=== PATIENT | male | born 1965 | race Caucasian/White ===

== ENCOUNTER → 2016-08-20 | Day surgery (SDC) | payer OTHER ==
[~2016-08-20] MED LIST: ACETAMINOPHEN 1000 MG/100 ML VIAL IV ONE; BUPIVACAINE/EPINEPHRINE 0.25% 50 ML VIAL ONE; KETOROLAC TROMETHAMINE 30 MG/ML (IVP) VIAL IV PUSH ONE; LACTATED RINGER'S 1000 ML INJ 1,000 ML ONE; LIDOCAINE 1%/EPINEPHrine 1:100,000 SOLN 20 ML VIAL ONE; METO25TA3 PO; MIDAZOLAM HCL 2 MG/2 ML VIAL ONE; PROPOFOL 200 MG/20 ML AMP IV ONE; ceFAZolin 2 GM PREMIX 50 ML ONE; oxyCODONE/ACETAMINOPHEN 5 MG/325 MG TAB ONE
--- NOTE | 2016-08-20 17:29 | TN ---
cc: CARRIE CORONA MD DATE OF SURGERY: 08/20/2016 PREOPERATIVE DIAGNOSIS Right inguinal lymphadenopathy. POSTOPERATIVE DIAGNOSIS Right inguinal venous aneurysm. PROCEDURE Excision of right inguinal venous aneurysm and right inguinal lymph nodes. SURGEON Carrie Corona MD [employer] Staff. SPECIMENS 1. Right inguinal lymph nodes, normal appearing. 2. Excision of right inguinal minor vein venous aneurysm. ESTIMATED BLOOD LOSS 10 cc. ANESTHESIA TIVA. INDICATIONS The patient is a 51-year-old male who had noticed a mass in the right groin. Initially it was felt to be a hernia but a CT was performed and it appeared to be a right inguinal lymph node. This had been present for quite some time therefore we recommended excision. OPERATIVE FINDINGS The patient had only normal lymph nodes in the right inguinal and superficial femoral areas. I was unable to find any enlarged or abnormal appearing lymph nodes. I did remove two lymph nodes for a specimen. However in a superficial vein, possibly one of the saphenous veins, there was approximately a 2.5 cm aneurysm. On either side there was normal-appearing vein and the aneurysm was excised. PROCEDURE IN DETAIL The patient was taken to the operating room and placed in supine position. General endotracheal anesthesia was induced. The right groin was prepped and draped in the usual sterile fashion. Then a surgical timeout was performed to verify correct patient, procedure and site. Appropriate perioperative antibiotics were administered. An incision was made low in the right inguinal area over where we had marked the spot preoperatively. I was unable to really palpate the inguinal mass. Electrocautery was used to dissect through the subcutaneous tissue. On the right inguinal and the superficial femoral areas, careful dissection was performed to attempt to find abnormal lymph node. There was no abnormal lymph node identified after quite a while of searching. Two normal appearing nodes were removed and sent for permanent pathology. The CT abdomen and pelvis was reviewed intraoperatively and it appeared the mass was just over the vessels. On further exam in the right inguinal incision, there was an obvious enlarged vein which initially had not been closely inspected because I was looking for a lymph node. The vein on further inspection was about a 2.5 cm venous aneurysm off of a minor vein. This was then excised and each end tied with a 3-0 silk suture. It was removed and this was felt to be the cause of his mass. The right inguinal area was then irrigated. Hemostasis was achieved. It was closed in two layers with deep 3-0 Vicryl interrupted, followed by running subcuticular 4-0 Monocryl. The patient tolerated the procedure well and was awakened and taken to PACU in stable condition. MD CHELSI Fermin/BJSamantha /2:09 PM /4:57 PM
== END | disposition home or self-care (01) ==
LOC: ESDC 09:41
PROVIDERS: ATTEND Surgery
DX: R59.0 Localized enlarged lymph nodes (principal); I72.4 Aneurysm of artery of lower extremity
CPT/HCPCS: 00400; 37799; 38500; 88305; J0131; J0690; J1885; J2250; J3010; J7120; 88304

== ENCOUNTER 2016-10-11 13:25 | Emergency (ER) | payer OTHER ==
[~2016-10-11] VITALS: Ht 175.3 cm; Wt 77.9 kg
[2016-10-11 13:38] VITALS: BP 139/90; PULSE 67; RESP 16; TEMP 97.7; O2SAT 97
[2016-10-11 13:45] VITALS: O2SAT 97
[2016-10-11] MEDS ORDERED: METO25TA3 PO (13:45)
[2016-10-11] MEDS ORDERED: SODIUM CHLORIDE 0.9% FLUSH 5 ML FLUSH IVF PRN (13:45)
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
[2016-10-11 13:56] LABS: AUTOMATED NEUTROPHIL # 5.2 TH/MM3 (1.8-7.7); BASOPHIL % 0.6 % (0.0-2.0); EOSINOPHIL # 0.1 TH/MM3 (0-0.4); EOSINOPHIL % 1.1 % (0.0-4.0); HEMATOCRIT 45.4 % (39.0-51.0); HEMO FLAGS DIFF FINAL; LYMPH % 18.3 % (9.0-44.0); LYMPHOCYTE # 1.3 TH/MM3 (1.0-4.8); MEAN CELL VOLUME 88.8 FL (80.0-100.0); MEAN CORPUSCULAR HEMOGLOBIN 29.2 PG (27.0-34.0); MEAN CORPUSCULAR HGB CONC 32.9 % (32.0-36.0); MONO % 7.5 % (0.0-8.0); NEUT % 72.5 % (16.0-70.0); PLATELET COUNT 180 TH/MM3 (150-450); RED BLOOD COUNT 5.12 MIL/MM3 (4.50-5.90); RED CELL DISTRIBUTION WIDTH 12.1 % (11.6-17.2); WHITE BLOOD COUNT 7.1 TH/MM3 (4.0-11.0)
[2016-10-11 14:07] LABS: CHLORIDE 107 MEQ/L (98-107); SODIUM (NA) 144 MEQ/L (136-145)
[2016-10-11 14:10] LABS: ANION GAP 12 MEQ/L (5-15); APTT (PATIENT) 27.7 SEC (24.3-30.1); BICARBONATE 25.1 MEQ/L (21.0-32.0); BLOOD UREA NITROGEN 12 MG/DL (7-18); PROTHROMBIN TIME - PATIENT 11.1 SEC (9.8-11.6)
[2016-10-11 14:14] LABS: GLOMERULAR FILTRATION RATE 93 ML/MIN (>89)
[2016-10-11 14:21] LABS: CREATINE KINASE 93 U/L (39-308)
--- NOTE | 2016-10-11 14:54 | RADHPO ---
EXAM DATE/TIME: 10/11/2016 13:49 [facility] COMPARISON: CHEST SINGLE AP, July 20, 2016, 16:22. INDICATIONS : Short of breath MEDICAL HISTORY : None. SURGICAL HISTORY : None. ENCOUNTER: Initial ACUITY: 3 days PAIN SCORE: 4/10 LOCATION: Bilateral chest FINDINGS: A single view of the chest demonstrates the lungs to be symmetrically aerated without evidence of mas s, infiltrate or effusion. The cardiomediastinal contours are unremarkable. Osseous structures are intact. CONCLUSION: No acute cardiac pulmonary process. Pilo Luis MD on October 11, 2016 at 14:52 Board Certified Radiologist. This report was verified electronically.
[2016-10-11 15:07] VITALS: BP 143/90
--- NOTE | 2016-10-12 10:23 | EKG ---
Date Performed: 10/11/2016 Time Performed: 13:31:20 PTAGE: 51 years EKG: Sinus rhythm Normal ECG PREVIOUS TRACING : 07/20/2016 15.46 DOCTOR: Kb Brennan Interpretating Date/Time 10/12/2016 10:19:52
== END 2016-10-11 15:09 | disposition home or self-care (01) ==
LOC: PHED 13:25
DX: R07.9 Chest pain, unspecified (principal); I48.0 Paroxysmal atrial fibrillation
CPT/HCPCS: 71010; 80048; 82550; 84484; 85025; 85610; 85730; 93005

== ENCOUNTER 2017-07-15 06:24 | Day surgery (SDC) | payer OTHER ==
[~2017-07-15] VITALS: Ht 175.3 cm; Wt 77.3 kg
[~2017-07-15 06:24] MED LIST changes: -ACETAMINOPHEN 1000 MG/100 ML VIAL IV ONE; -BUPIVACAINE/EPINEPHRINE 0.25% 50 ML VIAL ONE; -KETOROLAC TROMETHAMINE 30 MG/ML (IVP) VIAL IV PUSH ONE; -LACTATED RINGER'S 1000 ML INJ 1,000 ML ONE; -LIDOCAINE 1%/EPINEPHrine 1:100,000 SOLN 20 ML VIAL ONE; -MIDAZOLAM HCL 2 MG/2 ML VIAL ONE; -PROPOFOL 200 MG/20 ML AMP IV ONE; -ceFAZolin 2 GM PREMIX 50 ML ONE; -oxyCODONE/ACETAMINOPHEN 5 MG/325 MG TAB ONE
[2017-07-15] MEDS ORDERED: IOHEXOL 350 MG/ML 50 ML BTL (for Cath Lab) OTHER ONE (06:25)
[2017-07-15 06:45] VITALS: BP 141/105; PULSE 64; RESP 18; TEMP 97.9; O2SAT 97
[2017-07-15] MEDS ORDERED: NS 1000P @30 MLS/HR (KVO) IV SCH (06:45)
[2017-07-15] MEDS ORDERED: LISI10TA3 PO (07:11)
[2017-07-15] MEDS ORDERED: HEPARIN-NS/PF INJ 1,000 ML ONE (08:17)
[2017-07-15] MEDS ORDERED: MIDAZOLAM HCL 2 MG/2 ML VIAL ONE (08:21)
--- NOTE | 2017-07-15 08:58 | CATHPROC ---
[facility] HIS Report Study Information Study Number Admission Scheduled Start Study Start [id number] Jul 15 2017 6:24AM 07/15/2017 Jul 15 2017 8:10AM [place] Service Cardiac Catheterization Admit Source Facility Department Other [facility] Physician and Clinical Staff Initial MD Caamrena, Cheikh Paper Steameralfreda Schafer RN, Giorgio RecordDanielle Moore,RT(R) (BS) Scrub Adilene Cavanaugh,CHELSEY TECH2 Procedures Performed Procedure Location (Site) Vessel Name Coronary Angiograms RCA Right Coronary L Heart Cath Equipment Time Sql Report Developer Description Size Mfg Part Number Used/Scraped TRANSDUCER, TRUWAVE [id number] 08:21 FALL FLOR * Used W/STOCKCOCK *[id number] *[id number] *[id number] *[id number] 08:46 DAIG/[employer]. PHANI MEDICAL ANGIOSEAL, FR6 VIP FR 6 Used *[id number] 08:21 MEDLINE INDUSTRIES PACK, CCL CUSTOM * Used *[id number] 08:21 Caktus PACER PEN, SKIN DUAL W/ RULER * Used *[id number] 08:21 Ecelles Carson MEDICAL SHEATH, FR6.5 PRELUDE 11CM FR 6.5 038ACT Used *[id number] 08:21 Ecelles Carson MEDICAL WIRE, 3MMJ .035 180CM 180CM Used *[id number] 08:21 NAMIC MANIFOLD, 4 PORT * Used *[id number] 08:21 NYCOMED OMNIPAQUE, 350 MG, 100ML 100ML [id number] Used [id number] 08:21 HAMMER MEDICAL BLANKET,WARM AIR CCL * Used *[id number] Equipment Model, Serial, Lot Number and Expiration Data Description Model Number Serial Number Lot Number Expiration Da te ANGIOSEAL, FR6 VIP [id number] 03-24-2018 History: Current Medications Medication Dosage/Unit Route Frequency Last Date/Time Taken LISINOPRIL Beta Kelsey History: Allergies Allergy Reaction No Known Allergies escitalopram History: Risk Factors Family History of Hypertension Dyslipidemia Previous MT Previous Heart Failure Premature CAD Yes No No No No Prior Valve Prior PCI Prior CABG Surgery No No No Cerebrovascular Peripheral Artery Chronic Lung On Dialysis Diabetes Disease Disease Disease No No No No No History: Stress Tests Stress or Imaging Studies Performed Yes Standard Exercise Stress Stress Test Result Stress Test Ischemia Risk/Extent Test Yes Positive Low Stress Echo No Stress Test SPECT No Stress Test CMR No Cardiac CTA Coronary Calcium Score No No History: Other Current Smoker Method Packs a Day Years Used Pack Years Yes Cigarettes 1 20 20 Labs Hgb (g/dl) Hct (%) RBC (MIL/MM3) WBC (l/cumm) Platelets (thousands) 11.60-17.00 35.00-51.00 4.00-5.90 4.00-11.00 150.00-450.00 16.8 51.9 5.6 7 196 Glucose (mg/dl) BUN (mg/dl) 74.00-106.00 7.00-18.00 89 20 Na (meq/l) K (meq/l) Cl (meq/l) CO2 (mmol/L) Ca (mg/dl) 136.00-145.00 3.50-5.10 98.00-107.00 21.00-32.00 8.50-10.10 145 4.2 106 26 10.1 PTT (sec) INR (PTT:PT) 24.30-30.10 0.90-1.10 10.5 1 CPK-MB (ng/ML) 0.50-3.60 Not Drawn Medication Medication Total Dose (Bolus/Oral) Medication Total Dosage/Unit 1% XYLOCAINE 20 mL VERSED 2 mg Medications (Bolus/Oral) Medication Time Given Dosage/Unit Administered By Reason VERSED 07/15/2017 8:36:11 AM 2 mg Giorgio Schafer RN 2 mg VERSED given in lab by Giorgio Schafer RN in Left Antecubital via Peripheral IV. 1% XYLOCAINE 07/15/2017 8:36:36 AM 20 mL Cheikh Camarena 20 mL 1% XYLOCAINE given in lab by Cheikh Camarena in Right Groin via Subcutaneous. Medication (Drip) Medication Time Given Dosage/Unit Concentration/Unit Diluent (ml) Solution IV Solutions 07/15/2017 8:11:32 AM 0 mL (IV) 500 NaCl .9 IV Solutions given in lab by Giorgio Schafer RN in Left Antecubital via Peripheral IV. Pump/Drip Flow = 30 ml/hr using NaCl .9. Initial Case Assessment Cardiovascular HR Rhythm NIBP Chest Pain 57 reg 141/101 0 Edema Present Skin color Skin None Normal Warm Circulatory - Right Pulses Dorsalis Pedis Femoral 3 3 Scale (0,1,2,3,4,d) Circulatory - Left Pulses Dorsalis Pedis Femoral 2 3 Scale (0,1,2,3,4,d) Circulatory - Lower Extremities Color Lower Right Color Lower Left Normal Normal Neurological State Oriented to time-place- Alert Moves all extremities person Respiration - General Respiration Rate SpO2 (%) (B/min) 20 98 Chronological Log Time Study Chronological Log 8:11:15 Patient arrived via Bed. 8:11:16 Patient Name, D.O.B, / Armband Verified By R.N. 8:11:18 Consent signed by the physician and the patient and verified by the [facility] staff. 8:11:18 Pre-op and post- op instructions given; patient acknowledges understanding of instructions. 8:11:19 Verbal Stimulation=2 Physical Stimulation=2 Airway=2 Respiration=2 TOTAL=8. (0=absent, 1=li mited, 2=present) 8:11:27 Patient has been NPO for More than 6Hrs. 8:11:28 Skin Breakdown none per pt 8:11:30 Patient Warmer Placed on the Table. 8:11:31 Jacquelyn Prominences Protected 8:11:31 A # 20 IV was noted in the Antecubital (left). Grade = 0 IV Solutions given in lab by Giorgio Schafer RN in Left Antecubital via Peripheral IV. Pump/Drip F low = 30 ml/hr using NaCl 8:11:32 .9. 8:11:33 History and physical on the chart or being dictated. Assessment: Initial Case, HR=57 BPM, Rhythm=reg, WJNY=338/101 mmhg, Chest Pain=0, Edema=None, Color=Normal, Skin = Warm Right Pulses: Chicho Ped=3, Femoral=3 Left Pulses: Chicho Ped=2, Femoral=3 8:11:34 Lower Right Extremities: Color=Normal Lower Left Extremities: Color=Normal Neurological: State=Alert, Ox3, PAVON Respiration: Resp=20 B/min, SpO2=98 % Vitals capture started with the following parameters, Patient=Adult, Interval=5 min, Initial Pre seqkt=271 mmHg, 8:16:14 Deflation Rate=5 mmHg, Cuff placed on Left Arm 8:16:46 TZCT=544/101 mmhg, SpO2=98.0 %, Resp=18 B/min, Pain=0, Zaida=10, Menezes=2 8:19:43 Bilateral groins prepped with 2% chlorhexidine, and draped after a 3 minute waiting time. 8:21:49 HR=57 bpm, KNJE=813/100 mmhg, SpO2=98.0 %, Resp=15 B/min, Pain=0, Zaida=10, Menezes=2 8:22:19 Reference ECG taken 8:23:37 Pressure channel 1 zeroed. 8:24:06 MD paged 8:27:31 HR=62 bpm, VSRX=922/101 mmhg, SpO2=97.0 %, Resp=22 B/min, Pain=0, Zaida=10, Menezes=2 8:29:29 MD arrived. 8:31:52 HR=59 bpm, RIHZ=376/97 mmhg, SpO2=97.0 %, Resp=26 B/min, Pain=0, Zaida=10, Menezes=2 Time Out. Correct patient, correct procedure, correct physician, power injector not loaded with contrast with surgical 8:36:00 team present. Time Out Concurred by MD and individual staff in procedure. 8:36:11 2 mg VERSED given in lab by Giorgio Schafer RN in Left Antecubital via Peripheral IV. 8:36:26 Case Start 8:36:36 20 mL 1% XYLOCAINE given in lab by Cheikh Camarena in Right Groin via Subcutaneous. 8:36:55 HR=65 bpm, XMXQ=191/96 mmhg, SpO2=98.0 %, Resp=14 B/min, Pain=0, Zaida=10, Menezes=2 8:39:40 Access site was Right Femoral Artery. 8:39:50 A SHEATH, FR6.5 PRELUDE 11CM FR 6.5 was advanced into the Fem Art (right) using the Percutan eous technique. A JL 4.0 INFINITI CATHETER FR 6 was advanced over a wire. OMNIPAQUE, 350 MG, 100ML 100ML was use d for 8:40:38 injections. Recorded Pressure: Ao, HR=62, Condition=Condition 1 8:41:34 (Aorta) Ao 135/86/106 8:41:50 HR=62 bpm, BIDC=285/96 mmhg, SpO2=96.0 %, Resp=11 B/min, Pain=0, Zaida=10, Menezes=2 8:43:32 Catheter was removed A JR 4.0 INFINITI CATHETER FR 6 was advanced over a wire. OMNIPAQUE, 350 MG, 100ML 100ML was use d for 8:43:36 injections. 8:44:33 The RCA was injected and visualized at various angles. OMNIPAQUE, 350 MG, 100ML 100ML used. 8:45:16 Catheter was removed 8:45:26 An injection in the Fem Art (right) was made through the SHEATH, FR6.5 PRELUDE 11CM FR 6.5. 8:46:44 ANGIOSEAL, FR6 VIP FR 6 placement in the Fem Art (right) 8:47:33 Case End 8:47:35 Called DOCU. Spoke to Vickey. 8:47:36 HR=65 bpm, RJUQ=927/93 mmhg, SpO2=96.0 %, Resp=11 B/min, Pain=0, Zaida=10, Menezes=2 8:47:57 Catheter(s) removed without difficulty 8:48:07 Sterile dressing applied to site 8:48:09 No case complications noted. 8:48:32 Bedside Report will be given. 8:48:35 A Left Heart Cath was performed. 8:51:52 HR=63 bpm, ZVPN=155/96 mmhg, SpO2=97.0 %, Resp=12 B/min, Pain=0, Zaida=10, Menezes=2 8:55:10 Patient moved to [facility] End Study - Contrast Media Used In Study Contrast Total Opened (mL) Total Used (mL) Total Wasted (mL) Omnipaque 30 30 0 End Study - Radiation Exposure Fluoro Time (minutes) 0.9 End Study - Sheaths Sheaths Pulled By Sheath Hold Time (min) Cheikh Camarena End Study - Patient Disposition Complications Transferred To Interventional Outcome No [facility] Holding No attempt made
[2017-07-15] MEDS ORDERED: MISC INFORMATION XX ONE (09:00)
== END 2017-07-15 12:35 | disposition home or self-care (01) ==
LOC: HDOC 06:24 → HDIC 06:25 → HDOC 12:35
PROVIDERS: ATTEND Internal Medicine Cardiovascular Disease
DX: R07.9 Chest pain, unspecified (principal); I10 Essential (primary) hypertension; G47.30 Sleep apnea, unspecified; E78.5 Hyperlipidemia, unspecified; K21.9 Gastro-esophageal reflux disease without esophagitis
CPT/HCPCS: 93454; 99152; C1760; C1769; C1893; G0269; J1644; J2250; Q9967

== ENCOUNTER 2017-09-25 21:23 | Emergency (ER) | payer OTHER ==
[~2017-09-25] VITALS: Ht 175.3 cm; Wt 80.0 kg
[~2017-09-25 21:23] MED LIST changes: +LISI10TA3 PO
[2017-09-25 22:05] VITALS: BP 140/92; PULSE 97; RESP 18; TEMP 98.8; O2SAT 97
[2017-09-25] MEDS ORDERED: SODIUM CHLOR 0.9% 1000 ML INJ 1,000 ML IV ONE (23:00)
[2017-09-25] MEDS ORDERED: ONDANSETRON HCL 4 MG/2 ML VIAL IV ONE (23:00)
[2017-09-25 23:20] VITALS: RESP 18
[2017-09-25 23:23] LABS: AUTOMATED NEUTROPHIL # 13.8 TH/MM3 (1.8-7.7); BASOPHIL # 0.1 TH/MM3 (0-0.2); BASOPHIL % 0.5 % (0.0-2.0); EOSINOPHIL # 0.2 TH/MM3 (0-0.4); EOSINOPHIL % 1.4 % (0.0-4.0); HEMATOCRIT 44.6 % (39.0-51.0); HEMOGLOBIN 15.8 GM/DL (13.0-17.0); LYMPH % 2.2 % (9.0-44.0); LYMPHOCYTE # 0.3 TH/MM3 (1.0-4.8); MEAN CORPUSCULAR HGB CONC 35.5 % (32.0-36.0); MEAN PLATELET VOLUME 10.1 FL (7.0-11.0); MONO % 5.5 % (0.0-8.0); MONOCYTE # 0.8 TH/MM3 (0-0.9); NEUT % 90.4 % (16.0-70.0); PLATELET COUNT 150 TH/MM3 (150-450); RED BLOOD COUNT 4.96 MIL/MM3 (4.50-5.90); RED CELL DISTRIBUTION WIDTH 13.1 % (11.6-17.2); WHITE BLOOD COUNT 15.2 TH/MM3 (4.0-11.0)
[2017-09-25 23:29] LABS: BILIRUBIN, URINE NEG (NEG); BLOOD, URINE NEG (NEG); GLUCOSE,URINE NEG (NEG); KETONE, URINE TRACE mg/dL (NEG); MUCUS URINE FEW /lpf (OCC); NITRITE,URINE NEG (NEG); PH, URINE 5.5 (5.0-8.5); URINE COLOR YELLOW (YELLW/STRAW); URINE LEUKOCYTE ESTERASE SMALL (NEG)
[2017-09-25 23:34] LABS: PROTHROMBIN TIME - PATIENT 10.4 SEC (9.8-11.6)
--- NOTE | 2017-09-25 23:37 | RADRPT ---
EXAM DATE/TIME: 09/25/2017 23:11 [facility] COMPARISON: CHEST SINGLE AP, October 11, 2016, 13:49. INDICATIONS : Short of breath. MEDICAL HISTORY : None. SURGICAL HISTORY : None. ENCOUNTER: Initial ACUITY: 1 day PAIN SCORE: 0/10 LOCATION: Bilateral chest FINDINGS: Underinflated AP view of the chest demonstrates a normal-sized cardiac silhouette. EKG lines overlie the patient. There is atelectasis at the lung bases. No effusion, consolidation, or pneumothorax is v isualized. The bones and soft tissues demonstrate no abnormality. CONCLUSION: Underinflated examination with atelectasis at the lung bases. Otherwise, no acute finding is identifi ed. Frandy Howell MD on September 25, 2017 at 23:35 Board Certified Radiologist. This report was verified electronically.
[2017-09-25 23:40] LABS: ALBUMIN 3.9 GM/DL (3.4-5.0); AST (GOT) 22 U/L (15-37); BICARBONATE 30.3 MEQ/L (21.0-32.0); BLOOD UREA NITROGEN 18 MG/DL (7-18); CHLORIDE 99 MEQ/L (98-107); CREATININE 0.97 MG/DL (0.60-1.30); GLOMERULAR FILTRATION RATE 81 ML/MIN (>89); GLUCOSE,RANDOM 106 MG/DL (74-106); MAGNESIUM 1.8 MG/DL (1.5-2.5); SODIUM (NA) 136 MEQ/L (136-145)
[2017-09-25 23:41] LABS: ALT (GPT) 27 U/L (12-78); C-REACTIVE PROTEIN LESS THAN 0.29 MG/DL (0.00-0.30)
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
[2017-09-25 23:43] LABS: ALKALINE PHOSPHATASE 83 U/L (45-117); TOTAL BILIRUBIN ADULT 0.7 MG/DL (0.2-1.0)
[2017-09-26] MEDS ORDERED: SODIUM CHLORID 0.9% 500 ML INJ 500 ML IV ONE
[2017-09-26] MEDS ORDERED: MORPHINE SULFATE 2 MG/ML INJ IV PUSH ONE
[2017-09-26 00:12] VITALS: RESP 16
[2017-09-26] MEDS ORDERED: IOHEXOL 350 MG/ML 10 ML VIAL (for RAD DIAG) IVCONTRAST ONE (01:01)
--- NOTE | 2017-09-26 01:13 | RADRPT ---
EXAM DATE/TIME: 09/26/2017 00:56 [facility] COMPARISON: CT ABDOMEN & PELVIS W CONTRAST, May 17, 2015, 23:06. INDICATIONS : Flu like symptoms; rule out obstruction. IV CONTRAST: 97 cc Omnipaque 350 (iohexol) IV ORAL CONTRAST: No oral contrast ingested. RADIATION DOSE: 8.03 CTDIvol (mGy) MEDICAL HISTORY : Hypertension. Cardiovascular disease Carcinoma, prostate. SURGICAL HISTORY : Hernia repair ENCOUNTER: Initial ACUITY: 2 days PAIN SCALE: 5/10 LOCATION: abdomen TECHNIQUE: Volumetric scanning of the abdomen and pelvis was performed. Using automated exposure control and ad justment of the mA and/or kV according to patient size, radiation dose was kept as low as reasonably achievable to obtain optimal diagnostic quality images. DICOM format image data is available electro nically for review and comparison. FINDINGS: LOWER LUNGS: The visualized lower lungs are clear. LIVER: Homogeneous density without lesion. There is no dilation of the biliary tree. No calcified gallston es. SPLEEN: Normal size without lesion. PANCREAS: Within normal limits. KIDNEYS: Normal in size and shape. There is no mass, stone or hydronephrosis. ADRENAL GLANDS: Within normal limits. VASCULAR: There is no aortic aneurysm. There is mild atherosclerotic disease. BOWEL/MESENTERY: A small hiatal hernia is present. There is circumferential wall thickening of the distal esophagus. S mall bowel demonstrates no abnormality or signs of obstruction. Terminal ileum is normal. No colon ab normality is seen. There is no free air or free fluid. ABDOMINAL WALL: There is a fat-containing midline anterior abdominal wall hernia superior to the umbilicus. RETROPERITONEUM: There is no lymphadenopathy. BLADDER: No wall thickening or mass. REPRODUCTIVE: Prostate gland is either small in size or absent. INGUINAL: There is no lymphadenopathy or hernia. MUSCULOSKELETAL: There are bilateral pars defects of L5. No lytic or blastic bone lesion is seen. CONCLUSION: 1. There are no findings to indicate bowel obstruction. 2. A small hiatal hernia is present and there is circumferential wall thickening of the visualized di stal esophagus. 3. A midline fat containing hernia is present superior to the umbilicus. Frandy Howell MD on September 26, 2017 at 1:06 Board Certified Radiologist. This report was verified electronically.
[2017-09-26] MEDS ORDERED: RANI150C PO (01:21)
[2017-09-26] MEDS ORDERED: ZOFR4TAB3 SL (01:53)
[2017-09-26] MEDS ORDERED: PROT40TA PO (01:58)
--- NOTE | 2017-09-26 13:25 | EKG ---
Date Performed: 09/25/2017 Time Performed: 23:18:20 PTAGE: 52 years EKG: Sinus rhythm BORDERLINE LEFT AXIS DEVIATION BORDERLINE ECG PREVIOUS TRACING : 10/11/2016 13.31 Since the prior tracing, there has been no significant motley DOCTOR: Jacques Bauer Interpretating Date/Time 09/26/2017 13:24:20
== END 2017-09-26 02:11 | disposition home or self-care (01) ==
LOC: NEPC 21:23
DX: R10.13 Epigastric pain (principal); R11.2 Nausea with vomiting, unspecified; K43.2 Incisional hernia without obstruction or gangrene; K21.9 Gastro-esophageal reflux disease without esophagitis; I10 Essential (primary) hypertension; Z85.46 Personal history of malignant neoplasm of prostate; Z87.891 Personal history of nicotine dependence
CPT/HCPCS: 71045; 74177; 80053; 81001; 83690; 83735; 85025; 85610; 85730; 86140; 93005; 96361; 96374; 96375; 99285; J2270; J2405; J7030; J7040; Q9967

== ENCOUNTER → 2017-11-15 | Day surgery (SDC) | payer OTHER ==
[~2017-11-15] VITALS: Ht 175.3 cm; Wt 82.0 kg
[~2017-11-15] MED LIST changes: +ACETAMINOPHEN 1000 MG/100 ML 100 ML IV ONE; +ASPI1TAB57 PO; +BUPIVACAINE/EPINEPHRINE 0.5% PF 30 ML VIAL ONE; +CHLORHEXIDINE GLUCONATE 2 % 1 PACK (2 CLOTHS) TOPICAL PRN; +KETOROLAC TROMETHAMINE 30 MG/ML (IVP) VIAL ONE; +LACTATED RINGER'S 1000 ML IV PRN; +METO50TA PO; +METOPROLOL TARTRATE 25 MG TAB PO PRN; +MIDAZOLAM HCL 2 MG/2 ML VIAL ONE; +MORPHINE SULFATE 8 MG/ML INJ ONE; +POLY17S PO; +POVIDONE IODINE 5% (ANTISEPSIS KIT) 4 APPLICATIONS EACH NARE PRN; +PROT40TA PO; +SODIUM CHLORID 0.9% 500 ML IV PRN; +ZOFR4TAB3 SL; +ceFAZolin 2 GM PREMIX 50 ML IV SCH
--- NOTE | 2017-11-15 10:26 | PD.OP ---
cc: Fercho Francis MD; Jermaine Adames MD Operative Report Date of Surgery: Nov 15, 2017 Preoperative Diagnosis: Ventral incisional hernia Postoperative Diagnosis: Ventral incisional hernia Procedure: Laparoscopic repair of ventral incisional hernia with ventral light ST mesh and echo deployment system Anesthesia: General endotracheal Surgeon: Fercho Francis Wealth Management Manager(s): Luis A Jay CST Operation and Findings: Operative findings patient was found to have a 6 cm ventral incisional hernia where he had previously had a 12 mm robotic port site. The hernia was located several centimeters above the umbilicus. There is a very small indentation at the umbilicus without any evidence of true umbilical hernia. No other abnormalities were noted. Operative procedure: The patient was brought to the operating room and after satisfactory general endotracheal anesthesia was obtained, the abdomen was prepped and draped in usual sterile fashion. An I[place] drape was placed over the abdomen. The skin was anesthetized in the left subcostal region with 0.5% Marcaine with epinephrine. An incision was made in the left subcostal region and carried out sharply through the subcutaneous tissue. The fascia was bluntly with a hemostat and then the muscle and peritoneum were entered bluntly with care being taken not to injure the underlying viscera. Once a finger sweep revealed clear access, a 12 mm GelPort was placed within the perineal cavity and the balloon engaged. The abdomen was then insufflated to 15 mmHg using carbon dioxide. The camera was inserted and the visceral injury was inspected for with none being identified. Under direct visualization 2 5 ports were placed in the left side the abdomen and a single 5 port on the right side of the abdomen. The hernias was clearly identified and measured. It was necessary to take down the falciform ligament almost all the way to the diaphragm which was accomplished with the harmonic scalpel. Small amount of intraperitoneal fat was taken off the peritoneal surface to allow proper placement of the mesh. After measuring the size of the hernia defect, a 15 cm round mesh was selected. It was rolled and then properly placed within the peritoneal cavity without problem. The insufflation tubing was brought through in the midportion of the hernia and the backbone inflated. The mesh was then brought into close approximation to the anterior abdominal wall where it was locked into place with a hemostat on the tubing at the skin level. The mesh was then circumferentially tacked with absorbable tacks. The mesh backbone was then removed without problem and discarded. The mesh was tacked into place with multiple absorbable tacks to achieve is flat contact with the anterior peritoneal surface as possible. Once the mesh had been placed, hemostasis was checked for and found to be quite satisfactory. Once again the mesh was checked and found to be intact circumferentially with good contact with the peritoneal surface. The carbon dioxide was then vented as completely as possible to the atmosphere after which the ports were removed. The fascial defect in the left upper quadrant was closed with interrupted 0 Vicryl sutures and the skin closed with interrupted 4-0 PDS subcuticular stitches. Steri- Strips were applied the patient was then awakened and taken from the operating room, in satisfactory condition, having tolerated the procedure without problem. Estimated blood loss was 5 mL's. The instrument, sponge, needle counts were reported as being correct 2 at the end of the procedure. Fercho Francis MD Nov 15, 2017 10:26
[2017-11-15 12:20] VITALS: BP 130/92; PULSE 73; RESP 16; TEMP 98.1; O2SAT 96
== END | disposition home or self-care (01) ==
LOC: PHSDC 06:24
PROVIDERS: ATTEND Surgery
DX: K43.2 Incisional hernia without obstruction or gangrene (principal); I10 Essential (primary) hypertension; I48.91 Unspecified atrial fibrillation
CPT/HCPCS: 00832; 49654; C1781; J0131; J0690; J1885; J2250; J2270; J3010; J7120